=== PATIENT | male | born 1970 | race Caucasian/White ===

== ENCOUNTER → 2018-01-12 | Outpatient (CLI) | payer OTHER ==
--- NOTE | 2018-01-12 16:37 | XR ---
EXAMINATION TYPE: XR chest 2V DATE OF EXAM: 01/12/2018 COMPARISON: NONE HISTORY: Cough TECHNIQUE: Frontal and lateral views of the chest are obtained. FINDINGS: Patchy density is present at the level of the lingula, no evident pneumothorax or pleural effusion. Prominent lung volume, increased AP diameter chest could be indicative of underlying COPD. Cardiac mediastinal silhouette, pulmonary vascularity and holden are within normal limits. Bronchial wa ll thickening is noted. IMPRESSION: Correlate for bronchitis, reactive airways disease, there may be some lingular atelectas is.
== END | disposition home or self-care (01) ==
LOC: RADXRMAIN 13:53
PROVIDERS: ATTEND Physician Assistant
DX: R05 Cough (principal)
CPT/HCPCS: 71046

== ENCOUNTER → 2020-11-06 | Outpatient (CLI) | payer OTHER ==
--- NOTE | 2020-11-06 15:50 | CONS ---
CONSULTATION DATE OF SERVICE: 11/06/2020 This patient is a 50-year-old gentleman who has been re-evaluated in [facility] for obstructive sleep apnea-hypopnea syndrome. HISTORY OF PRESENT ILLNESS/SLEEP-WAKE EVALUATION: This patient was diagnosed with obstructive sleep apnea-hypopnea syndrome in moderate range in our institution in 2012. He was started on treatment with CPAP at that time, and since that time he has continued to use CPAP. Recently his weight increased and he has snoring while using his CPAP equipment. His sleep schedule is from 9:30 p.m. until 5:30 a.m. on working days and from 10 p.m. until 5:30 a.m. on weekends. No problems with falling asleep. No TV in bedroom. He sleeps on the stomach position. He has episodes of restless legs. No history of hypnagogic hallucinations, sleep paralysis or cataplexy. The patient's weight has increased over the last 5 years by about 40 pounds. [place] Sleepiness Scale today is 8. PAST MEDICAL HISTORY: Positive for hyperlipidemia. PAST SURGICAL HISTORY: 1. Foreign body removed from right arm. 2. History of surgery for significant retrognathia 20 years ago. 3. History of migraines in the past. MEDICATIONS: Atorvastatin 40 mg once a day. SOCIAL HISTORY: Positive for smoking 25 pack/years. Alcohol consumption occasionally. FAMILY HISTORY: Hypertension, heart problems, sleep apnea, diabetes, acid reflux, cancer. REVIEW OF SYSTEMS: Snoring on CPAP, episodes of headaches. PHYSICAL EXAMINATION: GENERAL: A pleasant gentleman without distress. VITAL SIGNS: BP 142/80, HR 66, RR 15, height 5 feet 11 inches, weight 300, BMI 41.8, temperature 97.0, oxygen saturation at room air 96%. HEENT: PERRLA, EOMI. Evaluation of oropharynx showed tongue protrudes midline. Low position of soft palate. NECK: Supple. No JVD. Thyroid is not palpable. Neck is wide; 19 inches in circumference. LUNGS: Clear to percussion and to auscultation. Good air exchange. No wheezing or rhonchi. HEART: S1, S2 regular. No murmurs, gallops or rubs. ABDOMEN: Obese. EXTREMITIES: No clubbing or cyanosis. BOND UNDERWRITER: Awake, alert, and oriented X3. Cranial nerves 2 to 7 intact. There is no fasciculation or atrophy. noted. No focal deficits observed. I checked the patient's CPAP unit. CPAP pressure is 10 cm of water. The patient is using the equipment every night. Average amount of hours of usage is 6 hours. IMPRESSION: Obstructive sleep apnea-hypopnea syndrome diagnosed 13 years ago in our institution. The patient continues to use CPAP equipment every night for the whole night. Recently after his weight was increasing, he developed snoring. The patient has not been seen for 13 years. ASSESSMENT: 1. Wide neck, obstructive sleep apnea-hypopnea syndrome. 2. Obesity; body mass index 41.8. 3. Hyperlipidemia. 4. Headaches. 5. Status post foreign body removed from right arm. PLAN: 1. Repeat CPAP titration for re-evaluation of effective CPAP pressure at the present time after the patient's change in his weight and development of snoring while on the CPAP. 2. Patient will get a new CPAP unit. CPAP unit is old. It does not have information about apnea-hypopnea index. 3. Losing weight. 4. Sleep hygiene with regular time in bed for at least 7-1/2 hours. 5. No driving if feeling any sleepiness. Thank you very much for allowing me to participate in the management of your patient. Sincerely, Danny Waller MD, PhD, FAASM Diplomat of [employer] Manager [facility] [place] ANABELLE / CHRISTINE: [id number] /
== END | disposition home or self-care (01) ==
LOC: SLEEP 13:14
PROVIDERS: ATTEND Internal Medicine
DX: G47.33 Obstructive sleep apnea (adult) (pediatric) (principal); E78.5 Hyperlipidemia, unspecified; E66.9 Obesity, unspecified; R51.9 Headache, unspecified; Z68.41 Body mass index [BMI] 40.0-44.9, adult; Z98.890 Other specified postprocedural states; Z99.89 Dependence on other enabling machines and devices
CPT/HCPCS: 99211

== ENCOUNTER → 2021-02-20 | Outpatient (CLI) | payer OTHER ==
--- NOTE | 2021-02-20 14:45 | SFUN ---
SLEEP CENTER FOLLOW UP NOTE DATE OF SERVICE: 02/20/2021 This 50-year-old gentleman has been followed in Sleep Center for treatment of obstructive sleep apnea-hypopnea syndrome. Recently patient's CPAP unit has been replaced and today is his first visit after he started to use new CPAP equipment. The patient likes his new CPAP unit a lot. It works well for him. He does not snore, sleeps well. [place] Sleepiness Scale today is 6. I checked CPAP unit. CPAP pressure is 12 cm of water. Usage is 100% of nights, average 6.9 hours per night. Leak is 37 L/minute, which is slightly high, but apnea-hypopnea index is only 1.2, which is absolutely perfect. MEDICATION: Atorvastatin 40 mg once a day. PHYSICAL EXAMINATION: GENERAL: Patient in no distress. VITAL SIGNS:BP 135/86, HR 70, RR 12, weight 205.8, temperature 98.7, oxygen saturation at room air 97%. HEENT: PERRLA, EOMI. Oropharynx low position of soft palate. NECK: Supple, no JVD. Thyroid is not palpable. LUNGS: Clear to percussion and to auscultation. Good air exchange. No wheezing or rhonchi. HEART: S1, S2 regular. No murmurs, gallops, or rubs. ABDOMEN: Slightly obese. EXTREMITIES: No clubbing or cyanosis. SERVICE CENTER TECHNICIAN: Awake, alert, and oriented X3. Cranial nerves 2 to 7 intact. There is no fasciculation or atrophy. noted. No focal deficits observed. IMPRESSION: 1. Obstructive sleep apnea-hypopnea syndrome. Patient demonstrated 100% compliance with treatment, benefitting from treatment. 2. Obesity. 3. Hyperlipidemia. 4. History of headaches. 5. Status post foreign body removed from right arm. PLAN: 1. Patient will continue to use PAP equipment every night for the whole night. 2. Sleep hygiene with regular time in bed for at least 7-1/2 to 8 hours. 3. Precautions related to driving. No driving if feeling sleepiness. 4. I will maintain all necessary prescription for PAP supplies including mask, tube, filters. 5. Watching weight. 6. Follow-up visit in 6 months or earlier if patient has any problems. Thank you very much for allowing me to participate in management of your patient. Sincerely, Danny Waller MD, PhD, FAASM Diplomat of [employer] Corporate Development Analyst of [facility] [place] MMODL / ERNSTN: [id number] /
== END ==
LOC: SLEEP 13:36
PROVIDERS: ATTEND Internal Medicine
DX: G47.33 Obstructive sleep apnea (adult) (pediatric) (principal); Z99.89 Dependence on other enabling machines and devices; E66.9 Obesity, unspecified; E78.5 Hyperlipidemia, unspecified; Z86.69 Personal history of other diseases of the nervous system and sense organs; Z87.821 Personal history of retained foreign body fully removed

== ENCOUNTER 2023-10-01 09:54 | Day surgery (SDC) | payer BC ==
[~2023-10-01 09:54] MED LIST: ACETAMINOPHEN TAB 500 MG TAB PO PRN; DEXAMETHASONE SOD PHOSPHATE 4 MG/ML 1 ML VIAL IV ONE; HEPARIN SODIUM,PORCINE/PF 5,000 UNIT/0.5 ML SYRINGE SQ PRN; LACTATED RINGERS 1,000 ML IV SCH; MIDAZOLAM 2 MG/2 ML VIAL IV PRN; ONDANSETRON 4 MG/2 ML VIAL IVP ONE; SCOPOLAMINE 1 MG/72 HR PATCH TRANSDERM ONE; ceFAZolin 3 GM in SODIUM CHLORIDE 0.9% 100 ML IVPB PRN; fentaNYL (PF) 50 MCG/ML 2 ML AMP IV PRN
[2023-10-01 11:10] LABS: HCT 45.7 % (39.0-53.0); HGB 15.5 gm/dL (13.0-17.5); MCHC 33.9 g/dL (31.0-37.0); MCV 94.4 fL (80.0-100.0); Mean Platelet Volume 8.8; Platelet Count 142 k/uL (150-450); RBC 4.84 m/uL (4.30-5.90); RDW 12.3 % (11.5-15.5); WBC 7.6 k/uL (3.8-10.6)
--- NOTE | 2023-10-01 11:31 | P.GSHP ---
History of Present Illness H&P Date: 10/01/23 Chief Complaint: Abdominal mass, right thigh mass 53-year-old male here for repair incarcerated ventral hernia. Patient states its gotten slightly larger. Mild soreness at times. Also has complaints of a mass right lateral thigh region. That has not changed. Past Medical History Past Medical History: GERD/Reflux, Hyperlipidemia, Sleep Apnea/CPAP/BIPAP Additional Past Medical History / Comment(s): mild arthritis, cpap , lipoma on rt thigh, umbilical hernia History of Any Multi-Drug Resistant Organisms: None Reported Past Surgical History: Appendectomy, Orthopedic Surgery Additional Past Surgical History / Comment(s): metal removed from elbow, Past Anesthesia/Blood Transfusion Reactions: No Reported Reaction Smoking Status: Former smoker - Past Family History Father Family Medical History: Cancer, Coronary Artery Disease (CAD) Mother Family Medical History: Coronary Artery Disease (CAD), Diabetes Mellitus Medications and Allergies Home Medications Medication Instructions Recorded Confirmed Type Atorvastatin [Lipitor] 20 mg PO DAILY 09/30/23 10/01/23 History Allergies Allergy/AdvReac Type Severity Reaction Status Date / Time morphine Allergy severe Verified 10/01/23 10:47 agitation Surgical - Exam Vital Signs Temp Pulse Resp BP Pulse Ox 97.7 F 80 16 132/82 97 10/01/23 10:53 10/01/23 10:53 10/01/23 10:53 10/01/23 10:53 10/01/23 10:53 Physical exam: General: Well-developed, well-nourished HEENT: Normocephalic, sclerae nonicteric Abdomen: Mildly tender incarcerated hernia 2-3 cm superior to umbilicus Extremities: No edema, mass right posterior lateral thigh 3 x 4 cm Neuro: Alert and oriented Results - Labs 10/01/23 10:58 Abnormal Lab Results - Last 24 Hours (Table) 10/01/23 Range/Units 10:58 Plt Count 142 L (150-450) k/uL Assessment and Plan (1) Incarcerated ventral hernia Narrative/Plan: Will proceed with open repair incarcerated ventral hernia with mesh, excision right thigh mass. Risks of bleeding, infection, recurrence, bladder and bowel injury, numbness, nerve injury were discussed with the patient. The patient understands and wishes to proceed. Current Visit: Yes Status: Acute Code(s): K43.6 - OTHER AND UNSP VENTRAL HERNIA WITH OBSTRUCTION, W/O GANGRENE SNOMED Code(s): 362714489
[2023-10-01] MEDS ORDERED: HYDROmorphone (PF) 1 MG/ML ONE (11:36)
[2023-10-01] MEDS ORDERED: KETOROLAC 15 MG/ML 1 ML VIAL ONE (11:36)
[2023-10-01] MEDS ORDERED: LIDOCAINE 1% INJ 10MG/ML (20 ML MDV) ONE (11:36)
[2023-10-01] MEDS ORDERED: fentaNYL (PF) 50 MCG/ML 2 ML AMP ONE (11:36)
[2023-10-01] MEDS ORDERED: KETAMINE HCL IN 0.9 % NACL 50 MG/5 ML SYRINGE ONE (11:36)
[2023-10-01] MEDS ORDERED: PROPOFOL 10 MG/ML 20 ML VIAL IV ONE (11:36)
[2023-10-01] MEDS ORDERED: SUCCINYLCHOLINE CHLORIDE 200 MG/10 ML VIAL IV ONE (11:36)
[2023-10-01] MEDS ORDERED: NEOSTIGMINE 1 MG/ML 10 ML VIAL ONE (11:36)
[2023-10-01] MEDS ORDERED: MIDAZOLAM 2 MG/2 ML VIAL ONE (11:36)
[2023-10-01] MEDS ORDERED: ROCURONIUM 10 MG/ML (5 ML VIAL) IV ONE (11:36)
[2023-10-01] MEDS ORDERED: GLYCOPYRROLATE 0.2 MG/ML 2 ML VIAL ONE (11:36)
[2023-10-01] MEDS ORDERED: LACTATED RINGERS 1,000 ML IV ONE (13:04)
--- NOTE | 2023-10-01 13:43 | P.OP ---
Date of Procedure: 10/01/23 Procedure(s) Performed: PREOPERATIVE DIAGNOSIS: Incarcerated ventral hernia, right thigh lipoma POSTOPERATIVE DIAGNOSIS: Incarcerated ventral and small reducible umbilical hernia, right thigh lipoma PROCEDURE: Open repair incarcerated ventral and umbilical hernia with mesh, right thigh lipoma excision with intermediate closure SURGEON: Dr. Rollins ANESTHESIA: General OPERATIVE PROCEDURE DETAILS: Patient placed on the operating table in the supine position. Abdomen and right thigh was prepped and draped in usual sterile fashion. A vertical incision was then made superior to the umbilicus. Dissection through the subcutaneous tissues took place using electrocautery. The patient had a incarcerated hernia present. A hernia sac containing what appeared to represent greater omentum was able to be reduced. The preperitoneal space was then carefully dissected circumferentially. The overlying fascia was also dissected of the surrounding fat. In doing so we lifted the umbilical adhesion to the fascia and a small defect at the base of the umbilicus was noted. This was actually in close proximity to our ventral hernia. We included the umbilical hernia in the ventral hernia defects. This now measured 3.3 x 1.5 cm. The preperitoneal space was dissected. We had sized to place a 6.4 cm round ventral ex mesh. This was sutured in place using trans-fascial 0 Ethibond sutures. The defect was then closed horizontally using interrupted mattress sutures. The folding it was sutured down using interrupted 0 Ethibond sutures as well. The umbilicus was sutured back down to the fascia using a 2-0 Vicryl stitch. The subcutaneous tissues were closed using 3-0 Vicryl sutures. The skin was closed using a running 4-0 Monocryl suture. Skin glue and sterile dressings were applied. Next the right thigh was addressed. A longitudinal incision was made overlying the palpable mass. The saphenous tissues were dissected using electrocautery. A lipomatous mass was encountered and excised using mostly electrocautery. This was sent to pathology. This measured 3.5 x 3 cm. Subcutaneous tissues closed using 3-0 Vicryl sutures. Skin closed using running 4-0 Monocryl stitch. Skin glue and sterile dressings applied. HERNIA CHARACTERISTICS: Length: 3.3 cm Width: 1.5 cm Type: Ventral and umbilical TYPE OF MESH USED: 6.4 cm round ventral ex LOCATION OF MESH: Sub-lay FIXATION: 0 Ethibond PREOPERATIVE DISCUSSION ON SMOKING CESSASTION: Yes PREOPERATIVE DISCUSSION ON MORBID OBESITY: Yes PREOPERATIVE DISCUSSION ON APPROPRIATE USE OF NARCOTIC USE: Yes PREOPERATIVE EDUCATION: Multi Modal, Smoking Cessation and Weight Loss with BMI over 35. DISPOSITION: Stable to recovery room
[2023-10-01] MEDS ORDERED: ACETAMINOPHEN TAB 325 MG TAB PO SCH (13:45)
[2023-10-01 13:46] VITALS: TEMP 97.6
[2023-10-01 14:53] VITALS: BP 129/87; PULSE 76; RESP 20
[2023-10-01] MEDS ORDERED: TAMSULOSIN 0.4 MG CAP.ER.24H PO ONE (14:57)
[2023-10-01] MEDS ORDERED: IBUPROFEN 600 MG TAB PO SCH (16:45)
== END 2023-10-01 15:37 | disposition home or self-care (01) ==
LOC: OR 09:54
PROVIDERS: ATTEND Surgery
DX: K42.0 Umbilical hernia with obstruction, without gangrene (principal); D17.23 Benign lipomatous neoplasm of skin and subcutaneous tissue of right leg; K21.9 Gastro-esophageal reflux disease without esophagitis; G47.30 Sleep apnea, unspecified; E78.5 Hyperlipidemia, unspecified; Z90.49 Acquired absence of other specified parts of digestive tract; Z98.890 Other specified postprocedural states; Z87.891 Personal history of nicotine dependence; Z88.5 Allergy status to narcotic agent; Z79.899 Other long term (current) drug therapy
CPT/HCPCS: 85027; 49592; 11406; J1100; J0690; J2405; J1644; 88304